=== PATIENT | male | born 1960 | race Caucasian/White ===

== ENCOUNTER 2019-07-13 07:26 | Day surgery (SDC) | payer OTHER ==
[2019-07-13] MEDS ORDERED: Sodium Chloride 0.9% 1,000 ML IV SCH (08:00)
[2019-07-13] MEDS ORDERED: Propofol 200 MG/20 ML SDV ONE (08:28)
[2019-07-13] MEDS ORDERED: Midazolam 1 MG/ML 2 ML SDV ONE (08:28)
[2019-07-13] MEDS ORDERED: fentaNYL 100 MCG/2 ML SDV ONE (08:28)
--- NOTE | 2019-07-13 12:48 | OR ---
DATE OF PROCEDURE: 07/13/2019 SURGEON: Ran Shelby MD PROCEDURE: Colonoscopy. FINDINGS: 1. Ascending colon polyp approximately 5 mm, completely removed using the hot snare forceps. 2. Descending colon polyp, approximately 8 mm, completely removed using the hot snare forceps. COMPLICATION: None. PASSENGER BARGE MASTER: None. ANESTHESIA: MAC. PREOPERATIVE DIAGNOSIS: Screening colonoscopy. POSTOPERATIVE DIAGNOSIS: Screening colonoscopy. RISKS: Risks, benefits, alternatives, limitations including, but not limited to infection, bleeding, and perforation were explained to the patient who wished to proceed. PROCEDURE IN DETAIL: The patient was placed in left lateral decubitus position. Digital rectal exam was performed without abnormality. Scope was introduced and advanced atraumatically to ileocecal valve. The scope was brought back through the ascending, transverse, descending colon, and retroflexed. The aforementioned polyps were identified and completely removed. No abnormalities on retroflexion. No abnormal bleeding after removal. No diverticulitis, diverticulosis. No colitis. No other abnormalities. The patient tolerated the procedure well. Ran Shelby MD /[id number]
== END 2019-07-13 10:20 | disposition home or self-care (01) ==
LOC: JP.SDS 07:26
PROVIDERS: ATTEND Surgery
DX: Z12.11 Encounter for screening for malignant neoplasm of colon (principal); D12.4 Benign neoplasm of descending colon; K63.5 Polyp of colon; I10 Essential (primary) hypertension; K21.9 Gastro-esophageal reflux disease without esophagitis
CPT/HCPCS: 45385; J2250; J2704; J3010; J7030

== ENCOUNTER 2019-09-14 06:44 | Emergency (ER) | payer OTHER ==
--- NOTE | 2019-09-14 07:27 | EDM.PDOC ---
ED HPI GENERAL MEDICAL PROBLEM - General Chief Complaint: Abdominal Pain Stated Complaint: ABD PAIN Time Seen by Provider: 09/14/19 07:05 Source of Information: Reports: Patient, Old Records, RN History Limitations: Reports: No Limitations - History of Present Illness INITIAL COMMENTS - FREE TEXT/NARRATIVE: 59 yo male here with RUQ abdominal pain that began about 0430h today. Had the same thing, less severe, and self-limiting yesterday morning. He took some ibuprofen and aspirin today with slight relief if his pain. His only abdominal surgery in the past was for a hernia repair. He denies any fever, vomiting, diarrhea, constipation or bloody stools. Has been on a low carb diet lately along with his trying to lose some weight. His last BP measurement was in July and was OK. Has not yet had today's BP meds yet. His recalls that when he last had blood work in the clinic his potassium was 3.2, ? July. Onset: Today, Sudden Onset Date: 09/14/19 Onset Time: 04:30 Duration: Hour(s):, Improving Location: Reports: Abdomen (RUQ) Quality: Reports: Ache, Pressure Severity: Moderate Improves with: Reports: Medication Worsens with: Reports: Other (uncertain) Context: Reports: Other (see HPI) Associated Symptoms: Denies: Fever/Chills, Nausea/Vomiting Treatments DEVELOPMENT ANALYST: Reports: NSAIDS Upper Abdomen Pain Score (Numeric/FACES): 8 - Related Data Allergies Allergy/AdvReac Type Severity Reaction Status Date / Time No Known Allergies Allergy Verified 07/13/19 07:40 Home Meds: Home Meds Lisinopril 40 mg PO DAILY 09/13/17 [History] Verapamil [Verelan] 360 mg PO DAILY 09/13/17 [History] Omeprazole Magnesium [Prilosec Otc] 20 mg PO DAILY 09/23/17 [History] Past Medical History HEENT History: Reports: Impaired Vision Other HEENT History: wears glasses Cardiovascular History: Reports: High Cholesterol, Hypertension Musculoskeletal History: Reports: Other (See Below) Other Musculoskeletal History: acute myelopathy L leg, foot drop weakness - Infectious Disease History Infectious Disease History: Reports: Chicken Pox - Past Surgical History HEENT Surgical History: Reports: Other (See Below) Other HEENT Surgeries/Procedures: wisdom tooth extraction GI Surgical History: Reports: Colonoscopy, Hernia, Abdominal, Hernia, Inguinal Neurological Surgical History: Reports: Discectomy, Laminectomy Other Neurological Surgeries/Procedures: L4-L5 Social & Family History - Family History Family Medical History: Noncontributory - Tobacco Use Smoking Status *Q: Never Smoker - Caffeine Use Caffeine Use: Reports: Soda - Recreational Drug Use Recreational Drug Use: No ED ROS GENERAL - Review of Systems Review Of Systems: See Below Constitutional: Reports: No Symptoms HEENT: Reports: No Symptoms Respiratory: Reports: No Symptoms Cardiovascular: Reports: No Symptoms GI/Abdominal: Reports: Abdominal Pain. Denies: Black Stool, Bloody Stool, Constipation, Diarrhea, Distension, Flatus, Hematemesis, Hematochezia, Melena, Nausea, Vomiting : Reports: No Symptoms Musculoskeletal: Reports: No Symptoms Skin: Reports: No Symptoms Neurological: Reports: No Symptoms ED EXAM, GI/ABD - Physical Exam Exam: See Below Exam Limited By: No Limitations General Appearance: Alert, WD/WN, No Apparent Distress Eyes: Bilateral: Normal Appearance Ears: Normal External Exam, Normal Canal, Hearing Grossly Normal Nose: Normal Inspection, No Blood Throat/Mouth: Normal Inspection, Normal Lips, Normal Oropharynx, Normal Voice, No Airway Compromise Head: Atraumatic, Normocephalic Neck: Normal Inspection Respiratory/Chest: No Respiratory Distress, Lungs Clear, Normal Breath Sounds, No Accessory Muscle Use Cardiovascular: Regular Rate, Rhythm, No Edema GI/Abdominal Exam: Normal Bowel Sounds, Soft, No Distention, Tender (positive Lockett's sign). No: Distended, Guarding, Rigid, Rebound Back Exam: Normal Inspection. No: CVA Tenderness (R), CVA Tenderness (L) Extremities: Normal Inspection, Normal Range of Motion, Non-Tender, No Pedal Edema Neurological: Alert, Oriented, CN II-XII Intact, Normal Cognition, No Motor/ Sensory Deficits Psychiatric: Normal Affect, Normal Mood Skin Exam: Warm, Dry, Intact, Normal Color, No Rash Course - Vital Signs Text/Narrative:: Scanned RUQ with the US probe and noted 1-2 small stones at the gallbladder neck , pressing over the area amplified his pain. The gallbladder wall was not thickened. Dr. Shelby called @ 0932h Last Recorded V/S: Last Vital Signs Temp 36.3 C 09/14/19 06:57 Pulse 71 01/09/20 10:54 Resp 16 09/14/19 10:54 BP 139/79 09/14/19 10:54 Pulse Ox 95 09/14/19 10:54 - Orders/Labs/Meds Orders: Active Orders 24 hr Category Date Time Status Cardiac Monitoring [RC] .As Directed Care 09/14/19 07:45 Active EKG Documentation Completion [RC] ASDIRECTED Care 09/14/19 11:43 Active AMYLASE [CHEM] Stat Lab 09/14/19 11:42 Ordered LIPASE [CHEM] Stat Lab 09/14/19 11:43 Ordered POTASSIUM,K [CHEM] Stat Lab 09/14/19 11:42 Ordered Magnesium Sulfate/Water [Magnesium Sulfate in Water Med 09/14/19 08:00 Active Premix] 2 gm Premix Bag 1 bag IV ONETIME NS + KCl 20mEq/L [Normal Saline with 20 mEq KCl] 1,000 Med 09/14/19 11:30 Active ml IV ASDIRECTED Sodium Chloride 0.9% [Saline Flush] Med 09/14/19 08:00 Active 10 ml FLUSH ASDIRECTED PRN Saline Lock Insert [OM.PC] Routine Oth 09/14/19 08:00 Ordered EKG 12 Lead [EK] Routine Ther 09/14/19 11:43 Ordered Medication Orders Magnesium Sulfate 2 gm/ Premix 50 mls @ 12.5 mls/hr IV ONETIME ONE Stop: 09/14/19 11:59 Last Admin: 09/14/19 08:18 Dose: 12.5 mls/hr Potassium Chloride/Sodium Chloride (Normal Saline With 20 Meq Kcl) 1,000 mls @ 150 mls/hr IV ASDIRECTED SIMÓN Last Admin: 09/14/19 11:32 Dose: 150 mls/hr Sodium Chloride (Saline Flush) 10 ml FLUSH ASDIRECTED PRN PRN Reason: Keep Vein Open Last Admin: 09/14/19 08:41 Dose: 10 ml Labs: Laboratory Tests 09/14/19 09/14/19 09/14/19 Range/Units 07:16 07:16 07:46 WBC 3.4 L (4.5-11.0) K/uL RBC 3.97 L (4.30-5.90) M/uL Hgb 13.7 (12.0-15.0) g/dL Hct 38.3 L (40.0-54.0) % MCV 97 (80-98) fL MCH 35 H (27-31) pg MCHC 36 (32-36) % Plt Count 367 (150-400) K/uL Sodium 143 (140-148) mmol/L Potassium 2.3 L* (3.6-5.2) mmol/L Chloride 102 (100-108) mmol/L Carbon Dioxide 31 (21-32) mmol/L Anion Gap 12.3 (5.0-14.0) mmol/L BUN 8 (7-18) mg/dL Creatinine 0.8 (0.8-1.3) mg/dL Est Cr Clr Drug Dosing 101.88 mL/min Estimated GFR (MDRD) > 60 (>60) Glucose 95 (74-106) mg/dL Calcium 8.3 L (8.5-10.1) mg/dL Magnesium 1.4 L (1.8-2.4) mg/dL Total Bilirubin 0.7 (0.2-1.0) mg/dL AST 49 H (15-37) U/L ALT 43 (12-78) U/L Alkaline Phosphatase 96 (46-116) U/L C-Reactive Protein 0.34 H (0.0-0.3) mg/dL Total Protein 7.0 (6.4-8.2) g/dL Albumin 3.2 L (3.4-5.0) g/dL Globulin 3.8 H (2.3-3.5) g/dL Albumin/Globulin Ratio 0.8 L (1.2-2.2) Meds: Medications Generic Name Dose Route Start Last Admin Trade Name Freq PRN Reason Stop Dose Admin Magnesium Sulfate 2 gm/ Premix 50 mls @ 12.5 mls/hr 09/14/19 08:00 09/14/19 08:18 IV 09/14/19 11:59 12.5 mls/hr ONETIME ONE Administration Potassium Chloride/Sodium Chloride 1,000 mls @ 150 mls/hr 09/14/19 11:30 05/26 11:32 Normal Saline With 20 Meq Kcl IV 150 mls/hr ASDIRECTED SIMÓN Administration Sodium Chloride 10 ml 09/14/19 08:00 09/14/19 08:41 Saline Flush FLUSH 10 ml ASDIRECTED PRN Administration Keep Vein Open Discontinued Medications Generic Name Dose Route Start Last Admin Trade Name Freq PRN Reason Stop Dose Admin Lisinopril 40 mg 09/14/19 08:15 09/14/19 08:40 Prinivil PO 09/14/19 08:16 40 mg ONETIME ONE Administration Magnesium Oxide 800 mg 09/14/19 08:12 09/14/19 08:40 Magnesium Oxide PO 09/14/19 08:13 800 mg ONETIME ONE Administration Potassium Chloride 40 meq 09/14/19 07:45 09/14/19 07:50 Potassium Chloride PO 09/14/19 07:46 40 meq ONETIME ONE Administration Verapamil HCl 360 mg 09/14/19 08:16 09/14/19 08:40 Calan Sr PO 09/14/19 08:17 360 mg ONETIME ONE Administration Departure - Departure Time of Disposition: 11:51 Disposition: Admitted As Inpatient 68 Condition: Fair Clinical Impression: Biliary colic, Hypokalemia, Hypomagnesemia HTN (hypertension) Qualifiers: Hypertension type: unspecified Qualified Code(s): I10 - Essential (primary) hypertension - Discharge Information *PRESCRIPTION DRUG MONITORING PROGRAM REVIEWED*: No *COPY OF PRESCRIPTION DRUG MONITORING REPORT IN PATIENT XAVIER: No Referrals: PCP,None [Primary Care Provider] - Forms: ED Department Discharge Sepsis Event Note - Evaluation Sepsis Screening Result: No Definite Risk - Focused Exam Vital Signs: Vital Signs Temp Pulse Resp BP BP Pulse Ox 09/14/19 10:54 71 16 139/79 95 09/14/19 09:54 64 15 134/80 94 L 09/14/19 08:50 170/101 H 09/14/19 08:40 170/101 H 09/14/19 06:57 36.3 C 61 16 174/91 H 99 Date Exam was Performed: 09/14/19 Time Exam was Performed: 11:50 - My Orders Last 24 Hours: My Active Orders 09/14/19 07:45 Cardiac Monitoring [RC] .As Directed 09/14/19 08:00 Magnesium Sulfate/Water [Magnesium Sulfate in Water Premix] 2 gm Premix Bag 1 bag IV ONETIME Sodium Chloride 0.9% [Saline Flush] 10 ml FLUSH ASDIRECTED PRN Saline Lock Insert [OM.PC] Routine 09/14/19 11:30 NS + KCl 20mEq/L [Normal Saline with 20 mEq KCl] 1,000 ml IV ASDIRECTED - Assessment/Plan Last 24 Hours: My Active Orders 09/14/19 07:45 Cardiac Monitoring [RC] .As Directed 09/14/19 08:00 Magnesium Sulfate/Water [Magnesium Sulfate in Water Premix] 2 gm Premix Bag 1 bag IV ONETIME Sodium Chloride 0.9% [Saline Flush] 10 ml FLUSH ASDIRECTED PRN Saline Lock Insert [OM.PC] Routine 09/14/19 11:30 NS + KCl 20mEq/L [Normal Saline with 20 mEq KCl] 1,000 ml IV ASDIRECTED
[2019-09-14] MEDS ORDERED: Potassium Chloride 10 MEQ Cap.ER PO ONE ×2 (07:45→12:14)
[2019-09-14] MEDS ORDERED: Magnesium Sulfate/Water 2 GM in Premix Bag 1 BAG IV ONE (08:00)
[2019-09-14] MEDS ORDERED: Sodium Chloride 0.9% 10 ML Syringe FLUSH PRN (08:00)
[2019-09-14] MEDS ORDERED: Magnesium Oxide 400 MG Tab PO ONE (08:12)
[2019-09-14] MEDS ORDERED: Lisinopril 10 MG Tab PO ONE (08:15)
[2019-09-14] MEDS ORDERED: Verapamil 180 MG Tab.ER PO ONE (08:16)
--- NOTE | 2019-09-14 10:44 | CRLUS ---
HISTORY: Right upper quadrant abdominal pain. TECHNIQUE: Limited abdominal ultrasound. COMPARISON: No prior. FINDINGS: Liver size is mildly enlarged measuring 18.6 cm. There is fatty infiltration of liver. No focal liver mass seen. No intrahepatic or extrahepatic biliary ductal dilatation. The extrahepatic bile duct measures 5 mm which is within normal limits. The main portal vein is patent with appropriate direction flow. Gallbladder appears mildly distended. There are 2 nonmobile stones within the gallbladder neck region. Gallbladder wall thickness is 4 mm which appears slightly thickened. No surrounding fluid. Per the magnetic resonance technologist, the patient was tender over the gallbladder during scanning. Pancreas is not well seen. IMPRESSION: 1. Gallstones within the neck region the gallbladder. The gallbladder appears mildly distended with a slightly thickened wall (4 mm). Per the magnetic resonance technologist, the patient was tender over the gallbladder during scanning. 2. No biliary ductal dilatation. 3. Fatty infiltration of a mildly enlarged liver. Dictated by Esau Ruiz MD @ 09/14/2019 10:42:39 AM Dictated by: Esau Ruiz MD @ 09/14/2019 10:42:44 (Electronically Signed)
[2019-09-14] MEDS ORDERED: NS + KCl 20mEq/L 1,000 ML IV SCH (11:30)
--- NOTE | 2019-09-14 12:13 | CONS ---
DATE OF SERVICE: 09/14/2019 REFERRING PHYSICIAN: CONSULTING PHYSICIAN: Ran Shelby MD REASON FOR CONSULTATION: Right upper quadrant abdominal pain. HISTORY OF PRESENT ILLNESS: This is a pleasant 59-year-old male who has had multiple attacks of right upper quadrant abdominal pain associated with very mild nausea. It is made worse by eating greasy or fatty foods. Strong family history of gallbladder disease. PAST SURGICAL HISTORY: Inguinal hernia repair. PAST MEDICAL HISTORY: Hypertension and gastroesophageal reflux disease. SOCIAL HISTORY: Does not smoke. FAMILY HISTORY: As above. REVIEW OF SYSTEMS: GENERAL: Appropriate for condition. HEENT: No symptoms. Does wear glasses. CARDIOVASCULAR: No history of myocardial infarction. RESPIRATORY: No history of shortness of breath. GASTROINTESTINAL: As above. No acholic stools. GENITOURINARY: No dysuria. NEUROLOGIC: No symptoms. PSYCH: No history of anxiety or depression. The remainder of systems were reviewed and were negative. PHYSICAL EXAMINATION: VITAL SIGNS: Stable. The patient is afebrile. GENERAL: The patient is resting comfortably. HEENT: Pupils are equal. NECK: Supple. LUNGS: Clear. CARDIOVASCULAR: Regular rhythm and rate. ABDOMEN: Pain with palpation, right upper quadrant. Mild rebound. Mild guarding. Remainder of abdomen, nontender and nondistended. EXTREMITIES: Full range of motion. NEUROLOGIC: Oriented x3. PSYCH: No gross depression. IMAGING: I did review, which shows a stone in the gallbladder, large gallbladder, and positive Lockett sign. ASSESSMENT: Biliary dyskinesia, cholelithiasis. PLAN: The patient will be taken to the operating room tomorrow morning for laparoscopic cholecystectomy. We discussed risks, benefits, alternatives, and limitations including, but not limited to infection, bleeding, cystic duct leaks, and common bile duct injuries along with the possibility of open surgery. The patient understands these risks and wishes to proceed. Ran Shebly MD /[id number]
[2019-09-14] MEDS: Potassium Chloride 20 MEQ, Lidocaine 1% 2 ML in Sodium Chloride 0.9% 100 ML IV SCH ×3 (13:00→17:11)
== END 2019-09-14 20:13 | disposition home or self-care (01) ==
LOC: JP.ED 06:44
DX: K80.50 Calculus of bile duct without cholangitis or cholecystitis without obstruction (principal); E87.6 Hypokalemia; E83.42 Hypomagnesemia; I10 Essential (primary) hypertension; Z79.899 Other long term (current) drug therapy
CPT/HCPCS: 36415; 76705; 80053; 82150; 83690; 83735; 84132; 85027; 86140; 93005; 96365; 96366; 99284; A9270; J2001; J3475; J3480; J7050

== ENCOUNTER 2019-09-15 06:01 | Day surgery (SDC) | payer OTHER ==
[2019-09-15] MEDS ORDERED: Lidocaine 1% with EPINEPHrine 1:100,000 50 ML MDV ONE (06:36)
[2019-09-15] MEDS ORDERED: Bupivacaine 0.5% 50 ML MDV ONE (06:36)
[2019-09-15] MEDS: Sodium Chloride 0.9% 1,000 ML IV SCH ×2 (06:58→12:10)
[2019-09-15] MEDS ORDERED: ceFAZolin 2 GM in Sodium Chloride 0.9% 50 ML IV ONE (07:00)
[2019-09-15] MEDS ORDERED: metroNIDAZOLE/Normal Saline 500 MG in Premix Bag 1 BAG IV ONE (07:00)
[2019-09-15] MEDS ORDERED: fentaNYL 250 MCG/5 ML SDV ONE ×2 (08:02→10:02)
[2019-09-15] MEDS ORDERED: Glycopyrrolate 0.2 MG/ML 5 ML MDV ONE (08:03)
[2019-09-15] MEDS ORDERED: Ondansetron 4 MG/2 ML SDV ONE (08:03)
[2019-09-15] MEDS ORDERED: Neostigmine Methylsulfate 1 MG/ML 5 ML Syringe ONE (08:03)
[2019-09-15] MEDS ORDERED: Dexamethasone 4 MG/ML SDV ONE (08:03)
[2019-09-15] MEDS ORDERED: Succinylcholine 200 MG/10 ML MDV ONE (08:03)
[2019-09-15] MEDS ORDERED: Propofol 200 MG/20 ML SDV ONE (08:03)
[2019-09-15] MEDS ORDERED: Rocuronium 50 MG/5 ML Vial ONE (08:03)
[2019-09-15] MEDS ORDERED: hydrOXYzine HCL 100 MG/2 ML SDV IM PRN (10:13)
[2019-09-15] MEDS ORDERED: Zolpidem 5 MG Tab PO PRN (10:13)
[2019-09-15] MEDS ORDERED: Acetaminophen/HYDROcodone 325-5 MG Tab PO PRN (10:13)
[2019-09-15] MEDS ORDERED: Benzocaine/Cetylpyridinium/Menthol Lozenge MUCMEM PRN (10:13)
[2019-09-15] MEDS ORDERED: Docusate Sodium 100 MG Cap PO PRN (10:13)
[2019-09-15] MEDS ORDERED: Ketorolac 60 MG/2 ML SDV ONE (10:15)
--- NOTE | 2019-09-15 14:55 | OR ---
DATE OF PROCEDURE: 09/15/2019 SURGEON: Ran Shelby MD PROCEDURE: Laparoscopic cholecystectomy. PREOPERATIVE DIAGNOSIS: Cholecystitis. POSTOPERATIVE DIAGNOSIS: Cholecystitis. FINDINGS: Significantly inflamed gallbladder. COMPLICATIONS: None. STRANDING SUPERVISOR: None. ANESTHESIA: MAC, general/local. RISKS: Risks, benefits, alternatives, and limitations including, but not limited to infection, bleeding, injury to abdominal structures, cystic duct leaks, and common bile duct injuries, possibility of open surgery, seroma, hematoma, and abscess formation among others were explained to the patient who wished to proceed. PROCEDURE IN DETAIL: The patient was placed in supine position. Supraumbilical curvilinear incision was made. Veress needle was used to enter the abdomen without any abnormality. Drop test was performed without abnormality. The abdomen was subsequently insufflated. This was followed by a 12 mm trocar. An additional 10 and 2 5 mm ports were entered under direct visualization. Gallbladder was retracted cephalad. Infundibulum was retracted inferolaterally. The gallbladder itself was noted to be significantly edematous and wrapped with omentum. Using blunt dissection, the dissection was commenced. Eventually a "clear view" of the gallbladder was obtained with a single pulsatile structure in the gallbladder and a single nonpulsatile structure entering the gallbladder. These were then subsequently clipped x3 and transected. The remaining one third of the gallbladder was removed off the gallbladder bed. This was delivered through the superior port without difficulty. The gallbladder bed was inspected for bleeding. There was a large amount of edema noted. Minimal bleeding was controlled by electrocautery. The pressure was dropped and held for 1 minute at 7. No abnormalities were noted. The abdomen was irrigated with 1 L of irrigation. The patient's body position was moved into multiple positions to remove the maximum amount of fluid. The liver bed was reinspected again. The air was removed. Deep stitches were used to close the fascia with 3-0 Vicryl suture. The skin was irrigated and closed with 4-0 Vicryl. Dermabond was applied. The patient tolerated the procedure well. Ran Shelby MD /[id number]
--- NOTE | 2019-09-15 14:56 | OR ---
DATE OF PROCEDURE: 09/15/2018 SURGEON: Ran Shelby MD PROCEDURE: Transversus abdominis plane block bilaterally. COMPLICATION: None. LENS POLISHER HAND: None. RISKS: Risks, benefits, alternatives, and limitations including, but not limited to infection, bleeding, and injury to abdominal structures were explained to the patient who wished to proceed. PROCEDURE IN DETAIL: The left transversus plane was identified first. This was injected with entire contents of solution under ultrasound guidance with a 13 megahertz probe. The right side was then performed in a same manner, same fashion, same technique in the same sequence using the same equipment except different needle and syringe. Dressings were applied. The patient tolerated the procedure well. Ran Shelby MD /[id number]
== END 2019-09-15 14:12 | disposition home or self-care (01) ==
LOC: JP.SDS 06:01 → JP.MS 10:13 → JP.SDS 14:12
PROVIDERS: ATTEND Surgery
DX: K80.12 Calculus of gallbladder with acute and chronic cholecystitis without obstruction (principal); I10 Essential (primary) hypertension; K21.9 Gastro-esophageal reflux disease without esophagitis
CPT/HCPCS: 87070; 87075; 87077; 87205; 88304; J0171; J0330; J0690; J1100; J1885; J2405; J2704; J2710; J2795; J3010; J3410; J3490; J7030; J7050

== ENCOUNTER 2020-02-19 05:52 | Emergency (ER) | payer OTHER ==
[2020-02-19] MEDS ORDERED: Lactated Ringers 1,000 ML IV ONE (06:30)
[2020-02-19] MEDS ORDERED: Ondansetron 4 MG/2 ML SDV IVPUSH ONE (06:31)
[2020-02-19] MEDS ORDERED: Acetaminophen 325 MG Tab PO ONE (06:54)
--- NOTE | 2020-02-19 06:54 | EDM.PDOC ---
<Brandan Velasquez - Last Filed: 02/19/20 07:28> ED HPI GENERAL MEDICAL PROBLEM - General Chief Complaint: Gastrointestinal Problem Stated Complaint: DIARRHEA,CHILLS Time Seen by Provider: 02/19/20 06:15 Source of Information: Reports: Patient History Limitations: Reports: No Limitations - History of Present Illness INITIAL COMMENTS - FREE TEXT/NARRATIVE: This is a 59-year-old who presents with concerns of diarrhea. He reports that he began having diarrhea yesterday. Stool has been light brown. No blood. The day prior he was out in the sun much of the day drinking alcohol. He notes that he has had a low-grade fever to 100 F. He works at [employer] and is concerned about his COVID risk. He has no recent travel. He has no recent antibiotic use. He has some associated nausea. He has no significant abdominal pain. No cough. No shortness of breath. No sick contacts. denies pain Pain Score (Numeric/FACES): 0 - Related Data Allergies Allergy/AdvReac Type Severity Reaction Status Date / Time No Known Allergies Allergy Verified 02/19/20 06:11 Home Meds: Home Meds Lisinopril 40 mg PO DAILY 09/13/17 [History] Verapamil [Verelan] 360 mg PO DAILY 09/13/17 [History] Omeprazole Magnesium [Prilosec Otc] 20 mg PO DAILY 09/23/17 [History] Famotidine 40 mg PO DAILY 02/19/20 [History] Magnesium Chloride [Mag-64] 64 mg PO DAILY 02/19/20 [History] Potassium Chloride 20 meq PO DAILY 02/19/20 [History] Past Medical History HEENT History: Reports: Impaired Vision Other HEENT History: wears glasses Cardiovascular History: Reports: High Cholesterol, Hypertension Gastrointestinal History: Reports: Cholelithiasis, Colon Polyp Musculoskeletal History: Reports: Other (See Below) Other Musculoskeletal History: acute myelopathy L leg, foot drop weakness - Infectious Disease History Infectious Disease History: Reports: Chicken Pox, Measles, Mumps - Past Surgical History HEENT Surgical History: Reports: Other (See Below) Other HEENT Surgeries/Procedures: wisdom tooth extraction Cardiovascular Surgical History: Reports: None GI Surgical History: Reports: Colonoscopy, Hernia, Abdominal, Hernia, Inguinal Neurological Surgical History: Reports: C-Spine, Discectomy, Laminectomy Other Neurological Surgeries/Procedures: L4-L5 Musculoskeletal Surgical History: Reports: None Social & Family History - Family History Family Medical History: Noncontributory HEENT: Reports: Glaucoma, Impaired Vision Cardiac: Reports: Bypass, DC Respiratory: Reports: None GI: Reports: None Endocrine/Metabolic: Reports: Diabetes, type II Oncologic: Reports: Liver - Tobacco Use Smoking Status *Q: Never Smoker - Caffeine Use Caffeine Use: Reports: Soda Caffeine Use Comment: 6 [place] per day - Recreational Drug Use Recreational Drug Use: No ED ROS GENERAL - Review of Systems Review Of Systems: See Below Constitutional: Reports: No Symptoms HEENT: Reports: No Symptoms Respiratory: Reports: No Symptoms Cardiovascular: Reports: No Symptoms Endocrine: Reports: No Symptoms GI/Abdominal: Reports: Diarrhea : Reports: No Symptoms Musculoskeletal: Reports: No Symptoms Skin: Reports: No Symptoms Neurological: Reports: No Symptoms Psychiatric: Reports: No Symptoms Hematologic/Lymphatic: Reports: No Symptoms Immunologic: Reports: No Symptoms ED EXAM, GI/ABD - Physical Exam Exam: See Below Exam Limited By: No Limitations General Appearance: Alert, No Apparent Distress Ears: Normal External Exam Nose: Normal Inspection Throat/Mouth: Normal Inspection Head: Atraumatic, Normocephalic Neck: Normal Inspection Respiratory/Chest: Lungs Clear Cardiovascular: Tachycardia GI/Abdominal Exam: Soft, Tender (Mild diffuse tenderness) Extremities: Normal Inspection Neurological: Alert, Oriented Psychiatric: Normal Affect, Normal Mood Skin Exam: Warm, Dry Course - Vital Signs Last Recorded V/S: Last Vital Signs Temp 98.4 F 02/19/20 09:57 Pulse 93 02/19/20 09:57 Resp 22 H 02/19/20 09:57 BP 140/81 02/19/20 09:57 Pulse Ox 99 02/19/20 09:57 - Orders/Labs/Meds Orders: Active Orders 24 hr Category Date Time Status CORONAVIRUS COVID-19, ALESHIA Stat Lab 02/19/20 08:23 Received Labs: Laboratory Tests 02/19/20 02/19/20 02/19/20 Range/Units 06:30 06:40 06:40 WBC 12.0 H (4.5-11.0) K/uL RBC 4.51 (4.30-5.90) M/uL Hgb 14.8 (12.0-15.0) g/dL Hct 44.2 (40.0-54.0) % MCV 98 (80-98) fL MCH 33 H (27-31) pg MCHC 34 (32-36) % Plt Count 232 (150-400) K/uL Sodium 133 L (140-148) mmol/L Potassium 4.4 (3.6-5.2) mmol/L Chloride 100 (100-108) mmol/L Carbon Dioxide 21 (21-32) mmol/L Anion Gap 16.4 H (5.0-14.0) mmol/L BUN 13 D (7-18) mg/dL Creatinine 1.4 H D (0.8-1.3) mg/dL Est Cr Clr Drug Dosing 58.22 mL/min Estimated GFR (MDRD) 52 L (>60) Glucose 127 H (74-106) mg/dL Calcium 8.4 L (8.5-10.1) mg/dL Magnesium 1.0 L (1.8-2.4) mg/dL Total Bilirubin 0.6 (0.2-1.0) mg/dL AST 49 H (15-37) U/L ALT 44 (12-78) U/L Alkaline Phosphatase 111 (46-116) U/L Total Protein 7.2 (6.4-8.2) g/dL Albumin 3.2 L (3.4-5.0) g/dL Globulin 4.0 H (2.3-3.5) g/dL Albumin/Globulin Ratio 0.8 L (1.2-2.2) Meds: Medications Discontinued Medications Generic Name Dose Route Start Last Admin Trade Name Freq PRN Reason Stop Dose Admin Acetaminophen 650 mg 02/19/20 06:54 02/19/20 07:08 Tylenol PO 02/19/20 06:55 650 mg NOW ONE Administration Lactated Ringer's 1,000 mls @ 1,000 mls/hr 02/19/20 06:30 02/19/20 07:09 Ringers, Lactated IV 02/19/20 07:29 1,000 mls/hr BOLUS ONE Administration Magnesium Sulfate 2 gm/ Premix 50 mls @ 12.5 mls/hr 02/19/20 07:27 02/19/20 07:50 IV 02/19/20 11:26 12.5 mls/hr ONETIME ONE Administration Ondansetron HCl 4 mg 02/19/20 06:31 02/19/20 07:07 Zofran IVPUSH 02/19/20 06:32 4 mg ONETIME ONE Administration - Re-Assessments/Exams Free Text/Narrative Re-Assessment/Exam: 59-year-old presents with concerns of fever and diarrheal symptoms. On exam he is noted to be well-appearing, mildly tachycardic, is febrile in ED to 101. Suspect he has a viral diarrheal illness. We are going to check some basic labs, administer IV fluids and antiemetics. It is appropriate to test him for COVID, will need to determine whether he will be an inpatient prior to gathering this. 02/19/20 06:51 Free Text/Narrative Re-Assessment/Exam: Labs are overall re-assuring, elevated WBC to be expected as well as mild electrolyte disturbance. Will replete Mg. Patient feeling improved, ready for PO challenge. Should be appropriate for discharge if able to tolerate this. Signed out to Dr Lopez at end of shift pending anticipated discharge. 02/19/20 07:25 Departure - Departure Disposition: Home, Self-Care 01 Clinical Impression: Diarrhea - Discharge Information Instructions: Diarrhea, Adult Referrals: Shannan Banuelos MD [Primary Care Provider] - Forms: ED Department Discharge Care Plan Goals: Advance diet over the next several days and concentrate on staying hydrated. Isolate at home until COVID-19 test is available. Return to the emergency room if worsening or concerns. Sepsis Event Note (ED) - Evaluation Sepsis Screening Result: Possible Sepsis Risk - Focused Exam Vital Signs: Vital Signs Temp Temp Pulse Resp BP Pulse Ox 02/19/20 09:57 98.4 F 93 22 H 140/81 99 02/19/20 08:54 98.6 F 92 02/19/20 07:54 102 F H 87 25 H 126/78 95 02/19/20 07:38 102 F H 02/19/20 07:00 100 F 102 H 22 H 95 02/19/20 06:21 100.3 F 108 H 22 H 134/85 97 02/19/20 06:20 100.3 F 108 H 22 H 134/85 97 <Bladimir Lopez - Last Filed: 02/19/20 13:08> Course - Re-Assessments/Exams Free Text/Narrative Re-Assessment/Exam: 02/19/20 10:00 Patient was observed for 3 hours, only had 1 episode of diarrhea and tolerated IV fluids and magnesium very well. He was developing an appetite and wanted to go home and try to eat rather than staying in the hospital. He will return if symptoms worsen, otherwise increase diet as tolerated and stay home until COVID- 19 test is available. Departure - Departure Time of Disposition: 10:54
[2020-02-19] MEDS ORDERED: Magnesium Sulfate/Water 2 GM in Premix Bag 1 BAG IV ONE (07:27)
== END 2020-02-19 10:54 | disposition home or self-care (01) ==
LOC: JP.ED 05:52
DX: R19.7 Diarrhea, unspecified (principal); I10 Essential (primary) hypertension; Z79.899 Other long term (current) drug therapy
CPT/HCPCS: 36415; 80053; 83735; 85027; 87635; 96361; 96365; 96366; 96375; 99284; A9270; J2405; J3475; J7120; U0002

== ENCOUNTER 2023-02-17 13:22 | Emergency (ER) | payer OTHER ==
[2023-02-17] MEDS ORDERED: Acetaminophen/HYDROcodone 325-5 MG Tab PO ONE (14:57)
[2023-02-17] MEDS ORDERED: Sodium Chloride 0.9% 10 ML Syringe FLUSH PRN (17:40)
[2023-02-17 17:53] LABS: BASOPHILS ABSOLUTE AUTO 0.04 K/uL (0.00-0.10); BASOPHILS PERCENT AUTO 0.4 % (0.1-1.3); EOSINOPHILS ABSOLUTE AUTO 0.04 K/uL (0.00-0.40); EOSINOPHILS PERCENT AUTO 0.4 % (0.0-5.4); HEMATOCRIT 36.4 % (38.4-49.7); HEMOGLOBIN 12.8 g/dL (12.9-16.9); IMMATURE GRAN ABSOLUTE AUTO 0.05 K/uL (0.00-0.23); IMMATURE GRAN PERCENT AUTO 0.5 % (0.0-0.7); LYMPHOCYTES ABSOLUTE AUTO 1.37 K/uL (0.8-3.3); LYMPHOCYTES PERCENT AUTO 12.7 % (11.4-47.7); MEAN CORPUSCULAR HEMOGLOBIN 33.7 pg (31.6-35.5); MEAN CORPUSCULAR HGB CONC 35.2 g/dL (31.6-35.5); MEAN CORPUSCULAR VOLUME 95.8 fL (81.4-99.0); MONOCYTES ABSOLUTE AUTO 0.68 K/uL (0.20-0.90); MONOCYTES PERCENT AUTO 6.3 % (3.3-12.6); NEUTROPHILS ABSOLUTE AUTO 8.58 K/uL (1.0-7.6); NEUTROPHILS PERCENT AUTO 79.7 % (40.0-78.1); PLATELET COUNT,PLT 234 K/uL (130-375); WHITE BLOOD CELL COUNT,WBC 10.8 K/uL (3.2-11.0)
[2023-02-17] MEDS ORDERED: HYDROmorphone 0.5 MG/0.5 ML Syringe IVPUSH ONE (18:12)
[2023-02-17 18:14] LABS: ALANINE AMINOTRANSFERASE,ALT 29 U/L (12-78); ALBUMIN 3.5 g/dL (3.4-5.0); ALKALINE PHOSPHATASE 93 U/L (46-116); ASPARTATE AMNIOTRANSFERASE,AST 44 U/L (15-37); BILIRUBIN TOTAL 0.8 mg/dL (0.2-1.0); BLOOD UREA NITROGEN,BUN 13 mg/dL (7-18); CALCIUM 8.5 mg/dL (8.5-10.1); CARBON DIOXIDE,CO2 27 mmol/L (21-32); CHLORIDE,CL 103 mmol/L (100-108); CREATININE 0.9 mg/dL (0.8-1.3); EST CRCL DRUG DOSING (CG) 87.28 mL/min; ESTIMATED GFR 98 mL/min (>60); GLUCOSE RANDOM 90 mg/dL (74-106); POTASSIUM,K 3.8 mmol/L (3.6-5.2); PROTEIN TOTAL,TP 7.2 g/dL (6.4-8.2); SODIUM,NA 140 mmol/L (140-148)
[2023-02-17] MEDS ORDERED: Diphtheria,Pertussis(Acell),Tetanus Vaccine 0.5 ML Syringe IM ONE (18:20)
[2023-02-17] MEDS ORDERED: Sodium Chloride 0.9% 10 ML Syringe FLUSH ONE (19:02)
[2023-02-17] MEDS ORDERED: Iopamidol 612 MG/ML 100 ML Bottle IV ONE (19:02)
[2023-02-17] MEDS ORDERED: Sodium Chloride 0.9% 50 ML IV ONE (19:02)
== END 2023-02-17 18:50 ==
LOC: JP.ED 13:22
DX: S32.131A Minimally displaced Zone III fracture of sacrum, initial encounter for closed fracture (principal); S20.211A Contusion of right front wall of thorax, initial encounter; S30.811A Abrasion of abdominal wall, initial encounter; S20.311A Abrasion of right front wall of thorax, initial encounter; I10 Essential (primary) hypertension; E78.00 Pure hypercholesterolemia, unspecified; Z86.16 Personal history of COVID-19; Z79.899 Other long term (current) drug therapy; W11.XXXA Fall on and from ladder, initial encounter
CPT/HCPCS: 36415; 70450; 71250; 71260; 72125; 74176; 74177; 76377; 80053; 85025; 96374; 99285; A9270; J1170; J3490; Q9967

== ENCOUNTER 2023-07-16 06:54 | Day surgery (SDC) | payer OTHER ==
[~2023-07-16 06:54] MED LIST: Midazolam 1 MG/ML 2 ML SDV ONE; Propofol 200 MG/20 ML SDV ONE; fentaNYL 100 MCG/2 ML SDV ONE
[2023-07-16] MEDS ORDERED: Sodium Chloride 0.9% 1,000 ML IV SCH (07:30)
== END 2023-07-16 10:20 | disposition home or self-care (01) ==
LOC: JP.SDS 06:54
PROVIDERS: ATTEND Surgery
DX: Z12.11 Encounter for screening for malignant neoplasm of colon (principal); K57.30 Diverticulosis of large intestine without perforation or abscess without bleeding; I10 Essential (primary) hypertension; K21.9 Gastro-esophageal reflux disease without esophagitis; M54.16 Radiculopathy, lumbar region; M19.90 Unspecified osteoarthritis, unspecified site; Z79.899 Other long term (current) drug therapy; Z88.8 Allergy status to other drugs, medicaments and biological substances
CPT/HCPCS: J2250; J2704; J3010; J7030

== ENCOUNTER 2024-05-18 20:26 | Emergency (ER) | payer OTHER ==
[2024-05-18 21:24] LABS: BASOPHILS ABSOLUTE AUTO 0.07 K/uL (0.00-0.10); BASOPHILS PERCENT AUTO 1.4 % (0.1-1.3); EOSINOPHILS ABSOLUTE AUTO 0.02 K/uL (0.00-0.40); EOSINOPHILS PERCENT AUTO 0.4 % (0.0-5.4); HEMOGLOBIN 14.6 g/dL (12.9-16.9); IMMATURE GRAN ABSOLUTE AUTO 0.01 K/uL (0.00-0.23); IMMATURE GRAN PERCENT AUTO 0.2 % (0.0-0.7); LYMPHOCYTES ABSOLUTE AUTO 1.11 K/uL (0.8-3.3); LYMPHOCYTES PERCENT AUTO 22.3 % (11.4-47.7); MEAN CORPUSCULAR HEMOGLOBIN 33.8 pg (31.6-35.5); MEAN CORPUSCULAR HGB CONC 36.5 g/dL (31.6-35.5); MEAN CORPUSCULAR VOLUME 92.6 fL (81.4-99.0); MONOCYTES ABSOLUTE AUTO 0.27 K/uL (0.20-0.90); MONOCYTES PERCENT AUTO 5.4 % (3.3-12.6); NEUTROPHILS ABSOLUTE AUTO 3.49 K/uL (1.0-7.6); NEUTROPHILS PERCENT AUTO 70.3 % (40.0-78.1); PLATELET COUNT,PLT 341 K/uL (130-375); RED BLOOD CELL COUNT 4.32 M/uL (4.14-5.76)
[2024-05-18 21:46] LABS: A/G RATIO 0.8 (1.2-2.2); ALANINE AMINOTRANSFERASE,ALT 25 U/L (12-78); ALBUMIN 3.5 g/dL (3.4-5.0); ALKALINE PHOSPHATASE 123 U/L (46-116); ASPARTATE AMNIOTRANSFERASE,AST 37 U/L (15-37); BILIRUBIN TOTAL 0.3 mg/dL (0.2-1.0); BLOOD UREA NITROGEN,BUN 8 mg/dL (7-18); CALCIUM 8.9 mg/dL (8.5-10.1); CARBON DIOXIDE,CO2 24 mmol/L (21-32); CHLORIDE,CL 107 mmol/L (100-108); CREATININE 1.1 mg/dL (0.8-1.3); EST CRCL DRUG DOSING (CG) 70.52 mL/min; ESTIMATED GFR 76 mL/min (>60); GLUCOSE RANDOM 109 mg/dL (74-106); POTASSIUM,K 3.2 mmol/L (3.6-5.2); PROTEIN TOTAL,TP 7.7 g/dL (6.4-8.2); SODIUM,NA 145 mmol/L (140-148)
[2024-05-18 21:47] LABS: ANION GAP 17.2 mmol/L (5.0-14.0)
[2024-05-18] MEDS: LORazepam 1 MG Tab PO ONE (23:26)
[2024-05-18] MEDS: Potassium Chloride 10% 20 MEQ/15 ML Soln 15 ML UD Cup PO ONE (23:27)
[2024-05-18] MEDS: Potassium Chloride 20 MEQ Tab.ER PO ONE (23:32)
[2024-05-19] MEDS: Aluminum Hydroxide/Magnesium Hydroxide/Simethicone Susp 30 ML Cup PO ONE (02:35)
== END 2024-05-19 03:58 | disposition home or self-care (01) ==
LOC: JP.ED 20:26
DX: F10.929 Alcohol use, unspecified with intoxication, unspecified (principal); F32.A Depression, unspecified; I10 Essential (primary) hypertension; E78.00 Pure hypercholesterolemia, unspecified; K21.9 Gastro-esophageal reflux disease without esophagitis; Z86.16 Personal history of COVID-19; Z90.49 Acquired absence of other specified parts of digestive tract; Z79.899 Other long term (current) drug therapy
CPT/HCPCS: 36415; 80053; 80307; 85025; 99283; 99284; A9270